=== PATIENT | female | born 2000 | race African-American/Black ===

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

== ENCOUNTER 2020-11-01 12:43 | Emergency (ER) | payer MEDICAID, MEDICARE ==
[~2020-11-01] VITALS: Ht 162.6 cm; Wt 137.0 kg
[2020-11-01] MEDS ORDERED: KETOROLAC 60MG/2ML VIAL IM STA (13:49)
[2020-11-01] MEDS ORDERED: IBUP-2029 PO (13:58)
[2020-11-01] MEDS ORDERED: CLIN300C12 PO (13:58)
[2020-11-01] MEDS ORDERED: METHYLPREDNISOLONE SOD SUCC 125 MG/2 ML VIAL IM ONE (14:00)
[2020-11-01 14:40] VITALS: BP 135/87
== END 2020-11-01 14:41 | disposition home or self-care (01) ==
LOC: ER 12:58
DX: J03.90 Acute tonsillitis, unspecified (principal)
CPT/HCPCS: 96372; 99284; J1885; J2930

== ENCOUNTER 2022-01-16 07:39 | Emergency (ER) | payer MEDICAID ==
[~2022-01-16] VITALS: Ht 165.1 cm; Wt 105.0 kg
[~2022-01-16 07:39] MED LIST: CLIN-194 PO; IBUP-2029 PO
[2022-01-16] MEDS ORDERED: HYDROCODONE/ACETAMINOPHEN 5/325MG TABLET PO ONE (09:45)
[2022-01-16] MEDS ORDERED: IBUP-2029 MT (11:19)
[2022-01-16] MEDS ORDERED: CYCL10TA21 MT (11:19)
[2022-01-16 11:39] VITALS: BP 116/75
== END 2022-01-16 11:47 | disposition home or self-care (01) ==
LOC: ER 08:16
DX: S09.8XXA Other specified injuries of head, initial encounter (principal); S20.212A Contusion of left front wall of thorax, initial encounter; S40.012A Contusion of left shoulder, initial encounter; Z88.0 Allergy status to penicillin; V43.52XA Car driver injured in collision with other type car in traffic accident, initial encounter; Y93.89 Activity, other specified; Y92.488 Other paved roadways as the place of occurrence of the external cause
CPT/HCPCS: 71045; 73030; 81025; 99284

== ENCOUNTER 2022-11-26 00:42 | Emergency (ER) | payer MEDICAID ==
[~2022-11-26 00:42] MED LIST changes: +CYCL10TA21 MT; +IBUP-2029 MT
[2022-11-26] MEDS ORDERED: DEXAMETHASONE 4MG/ML 1ML VIAL IM ONE (01:45)
[2022-11-26] MEDS ORDERED: CLINDAMYCIN HCL 150MG CAPSULE PO ONE (01:45)
[2022-11-26] MEDS ORDERED: KETOROLAC 30MG/ML VIAL IM ONE (01:45)
[2022-11-26] MEDS ORDERED: IBUP-2029 MT (04:13)
[2022-11-26] MEDS ORDERED: CLIN-194 PO (04:13)
== END 2022-11-26 04:21 | disposition home or self-care (01) ==
LOC: ER 00:42
DX: J03.90 Acute tonsillitis, unspecified (principal); Z88.0 Allergy status to penicillin
CPT/HCPCS: 81025; 96372; 99284; J1100; J1885; Z7610